=== PATIENT | female | born 1990 ===

== ENCOUNTER 2018-08-03 11:30 | Inpatient (IN) | payer OTHER ==
[~2018-08-03] VITALS: Ht 157.5 cm; Wt 69.9 kg
[2018-08-14] MEDS ORDERED: PROVENTIL HFA6.7 GM IH (13:40)
[2018-08-14] MEDS ORDERED: PRENATAL TABLE1 EAC1 PO (13:40)
== END 2018-08-16 12:38 | disposition home or self-care (01) | DRG 807 ==
LOC: LDR 08-14 11:38 → OB/GYN 08-14 21:40 → SURH 08-17 11:30
PROVIDERS: ADMIT Obstetrics & Gynecology Maternal & Fetal Medicine
PROC: 10E0XZZ Delivery of Products of Conception, External Approach (ICD-10-PCS; principal; 2018-08-14)
PROC: 0KQM0ZZ Repair Perineum Muscle, Open Approach (ICD-10-PCS; 2018-08-14)
PROC: 3E033VJ Introduction of Other Hormone into Peripheral Vein, Percutaneous Approach (ICD-10-PCS; 2018-08-14)
PROC: 10907ZC Drainage of Amniotic Fluid, Therapeutic from Products of Conception, Via Natural or Artificial Opening (ICD-10-PCS; 2018-08-14)
PROC: 4A1HXCZ Monitoring of Products of Conception, Cardiac Rate, External Approach (ICD-10-PCS; 2018-08-14)
DX: O70.1 Second degree perineal laceration during delivery (principal); Z37.0 Single live birth; Z3A.39 39 weeks gestation of pregnancy